=== PATIENT | male | born 1995 | race American Indian/Alaskan Native ===

== ENCOUNTER 2021-07-01 10:10 | Emergency (ER) | payer SELFPAY ==
[2021-07-01] MEDS ORDERED: CYCLOBENZAPRINE 10 MG TAB PO ONE (11:44)
[2021-07-01] MEDS ORDERED: KETOROLAC 60 MG/2 ML INJ IM ONE (11:44)
[2021-07-01] MEDS ORDERED: dexAMETHasone 4 MG/ML VIAL IM ONE (11:44)
--- NOTE | 2021-07-01 12:03 | Emergency Department Report ---
ED Back Pain/Injury HPI - General Chief Complaint: Extremity Injury, Lower Stated Complaint: RT LEG PAIN CANT BEND Time Seen by Provider: 07/01/21 11:38 Source: patient Limitations: No Limitations - History of Present Illness Initial Comments: Patient is a 26-year-old male presents emergency room with complaints of right lower back pain that radiates to his right gluteal and down his right leg that began a week ago. He denies any fall or injury. He states that his pain increases if he lays on that side when he first stands up or with lifting his leg straight up. He denies any fever, nausea, vomiting, diarrhea, skin changes, rashes, numbness, weakness, bowel or bladder incontinence, urinary symptoms. Patient denies any past medical history. No allergies to medications. - Related Data Previous Rx's Medication Instructions Recorded Last Taken Type HYDROcodone/APAP 5-325 [[place] 1 - 2 each PO Q6HR PRN #14 tablet 10/01/15 Unknown Rx 5/325] Ibuprofen [Motrin 800 MG tab] 800 mg PO Q8HR PRN #20 tablet 10/01/15 Unknown Rx cephALEXin [Keflex] 500 mg PO Q6HR #28 capsule 10/01/15 Unknown Rx Menthol/Camphor [[place] 1 applicatio TP BID #18 oint...g. 07/01/21 Unknown Rx Ointment] Naproxen 375 mg PO BID PRN #14 tablet 07/01/21 Unknown Rx methOCARBAMOL [Robaxin TAB] 500 mg PO BID PRN #14 tab 07/01/21 Unknown Rx Allergies Allergy/AdvReac Type Severity Reaction Status Date / Time No Known Allergies Allergy Unverified 10/01/15 20:53 ED Review of Systems ROS: Stated complaint: RT LEG PAIN CANT BEND Other details as noted in HPI Comment: All other systems reviewed and negative ED Past Medical Hx - Social History Smoking Status: Current Every Day Smoker Substance Use Type: None - Medications Home Medications: Home Medications Medication Instructions Recorded Confirmed Last Taken Type HYDROcodone/APAP 5-325 [[place] 1 - 2 each PO Q6HR PRN #14 tablet 10/01/15 Unknown Rx 5/325] Ibuprofen [Motrin 800 MG tab] 800 mg PO Q8HR PRN #20 tablet 10/01/15 Unknown Rx cephALEXin [Keflex] 500 mg PO Q6HR #28 capsule 10/01/15 Unknown Rx Menthol/Camphor [[place] 1 applicatio TP BID #18 oint...g. 07/01/21 Unknown Rx Ointment] Naproxen 375 mg PO BID PRN #14 tablet 07/01/21 Unknown Rx methOCARBAMOL [Robaxin TAB] 500 mg PO BID PRN #14 tab 07/01/21 Unknown Rx ED Physical Exam - General Limitations: No Limitations General appearance: alert, in no apparent distress - Head Head exam: Present: atraumatic, normocephalic - Eye Eye exam: Present: normal appearance - ENT ENT exam: Present: mucous membranes moist - Neck Neck exam: Present: normal inspection, full ROM. Absent: tenderness, meningismus - Respiratory Respiratory exam: Present: normal lung sounds bilaterally. Absent: respiratory distress, wheezes, rales, rhonchi, stridor, chest wall tenderness, accessory muscle use, decreased breath sounds, prolonged expiratory - Cardiovascular Cardiovascular Exam: Present: regular rate, normal rhythm, normal heart sounds. Absent: systolic murmur, diastolic murmur, rubs, gallop - Extremities Exam Extremities exam: Present: other (BLE exam: no leg edema, no bony ttp, no skin changes, neurovascularly intact) - Back Exam Back exam: Present: normal inspection, full ROM, paraspinal tenderness (right sided lumbar paraspinal muscular ttp, no midline C-spine, T-spine or L-spine ttp, no edema, no erythema, no rashes, no skin changes, no deformity, no step offs, no crepitus). Absent: vertebral tenderness - Neurological Exam Neurological exam: Present: alert, oriented X3, CN II-XII intact, normal gait. Absent: motor sensory deficit - Psychiatric Psychiatric exam: Present: normal affect, normal mood - Skin Skin exam: Present: warm, dry, intact ED Course Vital Signs 07/01/21 07/01/21 07/01/21 11:09 11:16 12:45 Temperature 99.3 F 99.3 F 98.4 F Pulse Rate 97 H 106 H 87 Respiratory 18 16 16 Rate Blood Pressure 141/93 141/86 Blood Pressure 141/93 [Left] O2 Sat by Pulse 98 98 99 Oximetry ED Medical Decision Making - Medical Decision Making Patient is a 26-year-old male presents emergency room with complaints of right lower back pain that radiates to his right gluteal and down his right leg that began a week ago. He denies any fall or injury. He states that his pain increases if he lays on that side when he first stands up or with lifting his leg straight up. He denies any fever, nausea, vomiting, diarrhea, skin changes, rashes, numbness, weakness, bowel or bladder incontinence, urinary symptoms. Patient denies any past medical history. No allergies to medications. On exam: right sided lumbar paraspinal muscular ttp, no midline C-spine, T-spine or L-sp ine ttp, no edema, no erythema, no rashes, no skin changes, no deformity, no step offs, no crepitus, BLE exam: no leg edema, no bony ttp, no skin changes, neurovascularly intact. Symptoms and examination appear likely consistent with sciatica versus lumbar radiculopathy. Patient has no red flag warning signs of back pain, no trauma, no unexplained weight loss, no fever, no IV drug use, no steroid use, no history of cancer, no neuro deficits, no saddle numbness. Patient given medications while in the emergency department as he did not drive with improvement of his symptoms. Discussed the importance of outpatient follow-up. Discussed return precautions. Advised patient Please use medication as prescribed. Follow-up with orthopedic/digital imaging specialist. Return to emergency room for any new or worsening symptoms. Critical care attestation.: If time is entered above; I have spent that time in minutes in the direct care of this critically ill patient, excluding procedure time. ED Disposition Clinical Impression: Back pain Qualifiers: Back pain location: low back pain Chronicity: acute Back pain laterality: right Sciatica presence: with sciatica Sciatica laterality: sciatica of right side Qualified Code(s): M54.41 - Lumbago with sciatica, right side Disposition: 01 HOME / SELF CARE / HOMELESS Is pt being admited?: No Does the pt Need Aspirin: No Condition: Stable Instructions: Sciatica Additional Instructions: Please use medication as prescribed. Follow-up with orthopedic/digital imaging specialist. Return to emergency room for any new or worsening symptoms. Prescriptions: Naproxen 375 mg PO BID PRN #14 tablet PRN Reason: pain methOCARBAMOL [Robaxin TAB] 500 mg PO BID PRN #14 tab PRN Reason: muscle spasm/pain Menthol/Camphor [[place] Ointment] 1 applicatio TP BID #18 oint...g. Referrals: [facility] [Provider Group] - 2-3 Days ADITHYA ALDRIDGE II, MD [Staff Physician] - 2-3 Days Time of Disposition: 12:17 Print Language: HAITIAN
[2021-07-01 12:47] VITALS: BP 141/86
== END 2021-07-01 12:47 | disposition home or self-care (01) ==
LOC: ED 10:10
DX: M54.5 Low back pain (principal); F17.200 Nicotine dependence, unspecified, uncomplicated; Z79.899 Other long term (current) drug therapy
CPT/HCPCS: 96372; 99282; J1100; J1885